=== PATIENT | male | born 1975 | race American Indian/Alaskan Native ===

== ENCOUNTER 2018-02-14 02:02 | Emergency (ER) | payer SELFPAY ==
[2018-02-14 02:13] VITALS: BP 110/88
[2018-02-14] MEDS ORDERED: NACL 0.9% 1000 ML 1,000 ML IV ONE (02:13)
[2018-02-14 02:33] LABS: Basophils # (Auto) 0.1 K/mm3 (0.0-0.1); Basophils % (Auto) 2.6 % (0.0-1.8); Eosinophils # (Auto) 0.3 K/mm3 (0.0-0.4); Eosinophils % (Auto) 6.4 % (0.0-4.3); Hemoglobin 12.6 gm/dl (11.8-15.2); Lymphocytes # (Auto) 1.6 K/mm3 (1.2-5.4); Lymphocytes % (Auto) 31.1 % (13.4-35.0); Mean Corpuscular HGB Conc 32 % (32-34); Mean Corpuscular Hemoglobin 27 pg (28-32); Mean Corpuscular Volume 83 fl (84-94); Monocytes # (Auto) 0.4 K/mm3 (0.0-0.8); Monocytes % (Auto) 7.8 % (0.0-7.3); Platelet Count 210 K/mm3 (140-440); Red Blood Count 4.69 M/mm3 (3.65-5.03); Red Cell Distribution Width 14.9 % (13.2-15.2)
[2018-02-14] MEDS ORDERED: TYLENOL PO ONE (02:42)
[2018-02-14] MEDS ORDERED: TYLENOL ONE (02:47)
[2018-02-14 02:50] LABS: Alanine Aminotransferase 14 units/L (7-56); Albumin 4.5 g/dL (3.9-5); BUN/Creatinine Ratio 28; Blood Urea Nitrogen 22 mg/dL (9-20); Calcium 9.2 mg/dL (8.4-10.2); Hemolysis Index 11; Lipase 23 units/L (13-60)
== END 2018-02-14 03:27 | disposition left against medical advice (07) ==
LOC: ED 02:02
DX: R10.31 Right lower quadrant pain (principal); Z53.21 Procedure and treatment not carried out due to patient leaving prior to being seen by health care provider
CPT/HCPCS: 36415; 80053; 83690; 85025

== ENCOUNTER 2018-06-04 07:17 | Emergency (ER) | payer SELFPAY | END 2018-06-04 08:13 | LOC: ED 07:17 ==